=== PATIENT | female | born 1995 | race Caucasian/White ===

== ENCOUNTER 2017-02-28 11:40 | Outpatient (CLI) | payer BC ==
[~2017-02-28] VITALS: Ht 162.6 cm; Wt 70.3 kg
[~2017-02-28 11:40] MED LIST: CETI10TA17 PO
== END 2017-02-28 11:46 ==
LOC: PREOP 11:40
PROVIDERS: ATTEND Obstetrics & Gynecology
DX: Z01.818 Encounter for other preprocedural examination (principal); Q52.8 Other specified congenital malformations of female genitalia

== ENCOUNTER 2017-03-02 11:26 | Day surgery (SDC) | payer BC ==
[~2017-03-02] VITALS: Ht 162.6 cm; Wt 70.3 kg
--- OUTSIDE RECORDS SUMMARY | 2017-03-02 11:31 | XMS REPORT ---
Author Author Kyrie Shaw [facility] Address [address] [place], [place] [id number] Care Team Providers Care Plastering Contractor Name Role Phone Kyrie Shaw PCP Allergies and Adverse Reactions Name Reaction Notes NO KNOWN DRUG ALLERGIES Plan of Treatment Planned Activity Comments Planned Date Planned Time Plan/Goal THER/PROPH/DIAG INJ SC/IM 04/08/2015 12:00 AM ELECTROCARDIOGRAM COMPLETE 03/11/2014 12:00 AM ELECTROCARDIOGRAM TRACING 03/11/2014 12:00 AM ELECTROCARDIOGRAM REPORT 03/11/2014 12:00 AM Medications Active Name Start Date Estimated Completion Date SIG Comments Zyrtec Oral Tetracaine Lollipops Lollipop 07/22/2014 Use as directed Name Start Date Expiration Date SIG Comments minocycline 50 mg oral capsule 04/01/2013 05/01/2013 TAKE ONE CAPSULE BY MOUTH EVERY DAY amoxicillin 875 mg oral tablet 03/13/2014 03/20/2014 take 1 tablet (875 mg) by oral route every 12 hours for 7 days amoxicillin 500 mg oral capsule 07/22/2014 07/29/2014 take 1 capsule by oral route 3 times a day for 7 days prednisone 20 mg oral tablet 07/22/2014 07/31/2014 Take 3 tabs x 3 days; then Take 2 days x 3; then Take 1 tab x 3 days. Discontinued Name Start Date Discontinued Date SIG Comments Retin-A 0.05 % topical cream 09/26/2010 03/09/2014 apply to the affected area(s ) by topical route once daily at bedtime Problem List Description Status Onset NO KNOWN MEDICAL PROBLEMS Active Allergic rhinitis Active 03/09/2014 Vital Signs Date Time BP-Sys(mm[Hg] BP-Lina(mm[Hg]) HR(bpm) RR(rpm) Temp WT HT HC BMI BSA BMI Percentile O2 Sat(%) 04/08/2015 11:39:00 AM 90 mmHg 70 mmHg 85 bpm 16 rpm 97.7 F 150 lbs 63.5 in 26.15 kg/m2 1.75 m2 87.2 % 99 % 07/22/2014 4:02:00 PM 122 bpm 16 rpm 100 F 148 lbs 63.5 in 25.8055 kg/m 1.7343 m 87.2 % 100 % 03/13/2014 5:04:00 PM 124 mmHg 66 mmHg 122 bpm 18 rpm 101.5 F 146.312 lbs 63.5 in 25.51 kg/m2 1.72 m2 86.8 % 100 % 03/11/2014 11:38:00 AM 122 mmHg 60 mmHg 76 bpm 18 rpm 97.8 F 147 lbs 63.5 in 25.6312 kg/m 1.7284 m 87.3 % 99 % 03/09/2014 3:53:00 PM 122 mmHg 64 mmHg 101 bpm 18 rpm 96.6 F 146.187 lbs 63.5 in 25.49 kg/m2 1.72 m2 86.8 % 98 % 03/28/2013 10:59:00 AM 115 mmHg 60 mmHg 90 bpm 18 rpm 97.5 F 146.375 lbs 63.5 in 25.5222 kg/m 1.7247 m 88.8 % 99 % 04/10/2012 3:21:00 PM 122 mmHg 70 mmHg 103 bpm 16 rpm 97.8 F 145 lbs 63.5 in 25.28 kg/m2 1.72 m2 90 % 97 % 07/06/2011 12:59:00 PM 110 mmHg 66 mmHg 102 bpm 16 rpm 96.8 F 131.5 lbs 98 % 09/26/2010 4:06:00 PM 100 mmHg 60 mmHg 91 bpm 16 rpm 97.8 F 129 lbs 100 % 03/21/2010 10:49:00 AM 110 mmHg 80 mmHg 80 bpm 16 rpm 96.7 F 119.187 lbs 63.5 in 20.7817 kg/m 1.5563 m 75.3 % 10/13/2009 3:19:00 PM 110 mmHg 78 mmHg 70 bpm 16 rpm 97.8 F 114.375 lbs 61.75 in 21.09 kg/m2 1.50 m2 80 % Social History Name Description Comments Single Attended middle school Has never used alcohol Denies illicit substance abuse Moderate Amount of Exercise (1-3 times weekly) Student Lives with both parents Tobacco Never smoker History of Procedures Date Ordered Description Order Status 07/06/2011 12:00 AM HETEROPHILE ANTIBODY SCREEN Reviewed 07/06/2011 12:00 AM STREP A ASSAY W/OPTIC Reviewed 04/10/2012 12:00 AM THER/PROPH/DIAG INJ SC/IM Reviewed 04/10/2012 12:00 AM Depo-Medrol, Per [address] [facility]#7620-1416-96 Reviewed 03/28/2013 12:00 AM THER/PROPH/DIAG INJ SC/IM Reviewed 03/28/2013 12:00 AM Decadron, Per [address] [facility]# [address]-24 Reviewed 03/28/2013 12:00 AM Depo-Medrol, Per 80 Mg [place]#5395-3752-80 Reviewed 03/21/2010 12:00 AM THER/PROPH/DIAG INJ SC/IM Reviewed 03/21/2010 12:00 AM Depo-Medrol 120 Mg Im SYLVAIN Reviewed 03/09/2014 12:00 AM THER/PROPH/DIAG INJ SC/IM Reviewed 03/09/2014 12:00 AM Decadron, Per [address] [facility]# [address]-22 Reviewed 03/09/2014 12:00 AM Depo-Medrol, Per [address] [facility]#0981-8657-93 Reviewed 03/11/2014 12:00 AM COMPLETE CBC W/AUTO DIFF WBC Returned 03/11/2014 12:00 AM ASSAY THYROID STIM HORMONE Returned 03/11/2014 12:00 AM ECG MONIT/REPRT UP TO 48 HRS Returned 03/11/2014 12:00 AM ECG MONIT/REPRT UP TO 48 HRS Returned 03/11/2014 12:00 AM ECG MONIT/REPRT UP TO 48 HRS Returned 03/11/2014 12:00 AM ECG MONIT/REPRT UP TO 48 HRS Returned Results Summary Data and Description Results 07/06/2011 1:30 PM MONO TEST NEGATIVE 03/11/2014 12:40 PM TSH 1.650 uIU/mLWBC 6.4 RBC 4.49 HGB 12.60 g/dLHCT 38.0 % MCV 85.0 fLMCH 28.10 pgMCHC 33.20 g/dLRDW CV 13.70 %MPV 9.50 fLPLT 266 %NEUT 61.50 %%LYMP 26.60 %%MONO 9.90 %%EOS 1.70 %%BASO 0.30 %#NEUT 3.90 #LYMP 1.69 # MONO 0.63 #EOS 0.11 #BASO 0.02 History Of Immunizations Not available. History of Past Illness Name Date of Onset Comments NO KNOWN MEDICAL PROBLEMS Rash Of Skin 10/13/2009 hyperkeratosis pilaris of upper arms Stress Incontinence, Female Oct 13 2009 3:24PM Rash Of Skin Oct 13 2009 3:24PM Rhinitis, Allergic Mar 21 2010 10:52AM Allergic rhinitis 03/09/2014 Acne Sep 26 2010 4:10PM Throat Pain Jul 06 2011 1:01PM Well Child Examination Apr 10 2012 3:24PM Allergic Rhinitis Apr 10 2012 3:24PM Pain in foot, Bilateral Apr 10 2012 3:24PM Allergic Rhinitis Mar 28 2013 11:02AM Allergic rhinitis Mar 09 2014 3:55PM Heart palpitations Mar 11 2014 11:40AM Chest pain Mar 11 2014 11:40AM Strep pharyngitis Mar 13 2014 5:07PM Acute tonsillitis Jul 22 2014 4:03PM Other seasonal allergic rhinitis Apr 08 2015 11:41AM Payers Insurance Name Company Name Plan Name Plan Number Policy Number Policy Group Number Start Date [facility] [id number] August [employer] Benefits [employer] Benefits [id number] Sunday, 2011 [employer] [facility] [id number] October History of Encounters Visit Date Visit Type Provider 04/08/2015 Office visit Kyrie Shaw APRN 07/22/2014 Office visit Kyrie Shaw ROOF TRUSS DETAILER 03/13/2014 Office visit Macho Ortez PA-C 03/11/2014 Office visit Sun Greenfield ROOF TRUSS DETAILER 03/09/2014 Office visit Sun Greenfield APRN 03/28/2013 Office visit Sun Greenfield APRN 04/10/2012 Office visit Casandra Guaman MD 04/10/2012 Voided Casandra Guaman MD 07/06/2011 Office visit Casandra Guaman MD 09/26/2010 Office visit Casandra Guaman MD 03/21/2010 Office visit Casandra Guaman MD 10/13/2009 Office visit Casandra Guaman MD
[2017-03-02] MEDS ORDERED: ceFAZolin 1,000 MG (ANCEF) VIAL ONE (11:34)
[2017-03-02] MEDS ORDERED: NS (IVPB) 50 ML ONE (11:34)
[2017-03-02] MEDS: LACTATED RINGERS 1,000 ML IV PRN ×2 (11:40→13:42)
[2017-03-02] MEDS ORDERED: ceFAZolin 1 GM/NS 50 ML IVPB IV ONE ×2 (11:45)
[2017-03-02] MEDS ORDERED: BUP/EPI 0.5% 1:200,000 (MARCAINE) 10ML VIAL IJ ONE ×2 (12:10→12:59)
[2017-03-02] MEDS ORDERED: BUPIVACAINE 0.25% 30 ML (SENSORCAINE) VIAL ONE (12:18)
[2017-03-02] MEDS ORDERED: proPOfol 200 MG/20 ML (DIPRIVAN) VIAL IV ONE (12:37)
[2017-03-02] MEDS ORDERED: fentaNYL INJECTION 100 MCG/2 ML AMP ONE (12:37)
[2017-03-02] MEDS ORDERED: MIDAZOLAM 2 MG/2 ML (VERSED) VIAL ONE (12:38)
[2017-03-02] MEDS ORDERED: LACTATED RINGERS 2,000 ML IV ONE (13:50)
[2017-03-02] MEDS ORDERED: SEVOFLURANE (ULTANE) 15 ML INHAL SOLN ONE (13:50)
[2017-03-02] MEDS ORDERED: ONDANSETRON 4 MG/2 ML (SDV) Z0FRAN ONE (13:50)
[2017-03-02] MEDS ORDERED: DEXAMETHASONE PF 10 MG/ML (DECADRON) VIAL ONE (13:50)
[2017-03-02] MEDS ORDERED: D5 LR IV SOLUTION 1,000 ML IV SCH (14:04)
--- NOTE | 2017-03-02 14:05 | Operative Report ---
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 She was prepped and draped in the usual sterile fashion. A straight cath was used to drain the bladder of clear yellow urine. I did an exam under anesthesia. 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 I was able to place a probe around the septum and found that this was only hymenal tissue. The vagina otherwise appear within normal. I then injected the septum with Marcaine 0.5% with epinephrine. I then excised the hymen at the superior and inferior connections on the hymen. This tissue was about 4-5 mm in diameter. I cut the tissue and then placed a figure of 8 stitch of 3-0 Vicryl at the cut edge to control bleeding. At this time, I could now insert a pediatric speculum and visualize a normal vagina and normal cervix. The patient was awakened and taken to the operating room in a stable fashion. Sponge, lap, needle and instrument counts were correct times two. 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 about 4-5 mm in diameter. Otherwise normal cervix and vagina. Allergies and Home Medications Allergies Coded Allergies: No Known Drug Allergies (Unverified , 02/28/17) Home Medications Cetirizine HCl 10 Mg Tablet, 10 MG PO DAILY, (Reported) [vicoprofen] , 1 PO q6, #20 7.5/200mg 1 po q 6 hrs prn Prescribed by: BRAYDON UMANA on 03/02/17 1408 BRAYDON UMANA DO Mar 02, 2017 14:05
[2017-03-02] MEDS ORDERED: vicoprofen PO (14:08)
--- NOTE | 2017-03-02 14:10 | Discharge Inst-Women's Service ---
Discharge Inst-Women's Serv Depart Medication/Instructions New, Converted or Re-Newed RX: RX on Chart Final Diagnosis hymenal septum Consults/Follow Up Additional Follow Up: Yes ([address] Umana/Yvrose. Office will call with appointment time) Activity Activity: Activity as Tolerated Driving Instructions: No Driving for 24 Hours NO SMOKING: NO SMOKING Nothing Inside Vagina: No Douching, No [place], No Tampons Diet Discharge Diet: No Restrictions Symptoms to Report to : Swelling Increased, Pain Increased, Fever Over 101 Degrees F, Vaginal Bleeding Increase, Vaginal Discharge Foul For Any Problems or Questions: Contact Your Physician BRAYDON UMANA DO Mar 02, 2017 14:10
[2017-03-02] MEDS ORDERED: HYDROcodone/APAP 5 MG/325 MG (LORTAB) TAB PO PRN (14:15)
[2017-03-02] MEDS ORDERED: KETOROLAC 30 MG/ML VIAL IVP ONE ×2 (14:15)
[2017-03-02] MEDS ORDERED: KETOROLAC 30 MG/ML VIAL IVP PRN (14:15)
[2017-03-02] MEDS ORDERED: ONDANSETRON 4 MG/2 ML (SDV) Z0FRAN IVP PRN (14:15)
[2017-03-02] MEDS ORDERED: morphine INJ 10 MG/ML 1ML (SYR OR VIAL) IVP PRN (14:15)
--- NOTE | 2017-03-02 15:30 | Progress Note-Pre Operative ---
Pre-Operative Progress Note H&P Reviewed The H&P was reviewed, patient examined and no changes noted. Date Seen by Provider: Mar 02, 2017 Time Seen by Provider: 12:55 Date H&P Reviewed: Mar 02, 2017 Time H&P Reviewed: 12:30 Pre-Operative Diagnosis: septal hymBRAYDON Cooney DO Mar 02, 2017 3:30 pm
== END 2017-03-02 15:55 | disposition home or self-care (01) ==
LOC: SDC 11:26
PROVIDERS: ATTEND Obstetrics & Gynecology
DX: Q52.8 Other specified congenital malformations of female genitalia (principal)
CPT/HCPCS: 36415; 84703; 87081